=== PATIENT | female | born 1990 | race Caucasian/White ===

== ENCOUNTER 2019-10-15 13:54 | Emergency (ER) | payer OTHER ==
[~2019-10-15] VITALS: Ht 157.5 cm; Wt 99.3 kg
[2019-10-15 14:00] VITALS: BP 115/68; Ht 157.5 cm; Wt 99.3 kg
== END 2019-10-15 14:19 | disposition home or self-care (01) ==
LOC: ED 13:54
DX: S90.111A Contusion of right great toe without damage to nail, initial encounter (principal); L03.031 Cellulitis of right toe; W22.8XXA Striking against or struck by other objects, initial encounter; Y93.89 Activity, other specified; Y92.89 Other specified places as the place of occurrence of the external cause; Y99.8 Other external cause status

== ENCOUNTER 2020-06-26 18:41 | Emergency (ER) | payer OTHER ==
[~2020-06-26] VITALS: Ht 157.5 cm; Wt 98.9 kg
[2020-06-26 20:15] VITALS: BP 132/86
== END 2020-06-26 20:15 | disposition home or self-care (01) ==
LOC: ED 18:41
DX: S01.85XA Open bite of other part of head, initial encounter (principal); W54.0XXA Bitten by dog, initial encounter; Y93.89 Activity, other specified; Y92.89 Other specified places as the place of occurrence of the external cause; Y99.8 Other external cause status
CPT/HCPCS: 90715